=== PATIENT | female | born 1935 | race Hispanic/Latino ===

== ENCOUNTER 2018-10-30 09:27 | Outpatient (CLI) | payer MEDICARE ==
[2018-10-30 10:40] LABS: Alanine Aminotransferase 25 units/L (7-56); BUN/Creatinine Ratio 28; Blood Urea Nitrogen 14 mg/dL (7-17); Calcium 10.2 mg/dL (8.4-10.2); Hemolysis Index 5
== END 2018-10-30 09:28 | disposition home or self-care (01) ==
LOC: LAB 09:27
PROVIDERS: ATTEND Internal Medicine
DX: R94.5 Abnormal results of liver function studies (principal); I10 Essential (primary) hypertension
CPT/HCPCS: 36415; 80053